=== PATIENT | female | born 1965 | race Two or more races ===

== ENCOUNTER 2016-07-17 18:00 | Emergency (ER) | payer SELFPAY ==
[~2016-07-17] VITALS: Ht 152.4 cm; Wt 61.8 kg
[2016-07-17] MEDS ORDERED: SODIUM CHLORIDE 0.9% 1,000ML IVBOLUS ONE ×2 (19:00→20:00)
[2016-07-17] MEDS ORDERED: ONDANSETRON 2MG/ML, 2ML IVPush ONE (19:00)
[2016-07-17] MEDS ORDERED: METOCLOPRAMIDE 5 MG/ML, 2ML IVPush ONE (19:00)
[2016-07-17] MEDS ORDERED: ONDANSETRON 2MG/ML, 2ML ONE (19:03)
[2016-07-17] MEDS ORDERED: METOCLOPRAMIDE 5 MG/ML, 2ML ONE (19:03)
[2016-07-17 19:16] LABS: PH, VENOUS 7.412 pH (7.320-7.420)
[2016-07-17 19:30] LABS: BLOOD UREA NITROGEN 21 mg/dL (7-18)
[2016-07-17 19:33] LABS: IS PT STATUS REG ER OR PRE ER? YES
[2016-07-17 19:36] LABS: ASPARTATE AMINO TRANSFERASE 19 U/L (15-37)
[2016-07-17] MEDS ORDERED: INSULIN REGULAR 100 UNITS/ML, 3ML VIAL SQ-INSULIN ONE (20:00)
[2016-07-17 20:02] LABS: PATH.CAST-FLAG NOT PRESENT; SPERM-FLAG NOT PRESENT; SRC-FLAG NOT PRESENT; XTAL-FLAG NOT PRESENT; YLC-FLAG NOT PRESENT
[2016-07-17] MEDS ORDERED: INSULIN SINGLE DOSE, ER SQ-INSULIN ONE (20:07)
[2016-07-17] MEDS ORDERED: CIPROFLOXACIN 500 MG TABLET PO ONE (21:30)
[2016-07-17] MEDS ORDERED: CIPROFLOXACIN 500 MG TABLET ONE (21:41)
[2016-07-17 22:06] VITALS: BP 139/75
== END 2016-07-17 22:08 | disposition home or self-care (01) ==
LOC: ED 21:00
DX: E86.0 Dehydration (principal); G43.A1 Cyclical vomiting, in migraine, intractable; E86.9 Volume depletion, unspecified; N30.00 Acute cystitis without hematuria; E11.65 Type 2 diabetes mellitus with hyperglycemia; E78.5 Hyperlipidemia, unspecified; I10 Essential (primary) hypertension
CPT/HCPCS: 36415; 80053; 81001; 82010; 82803; 82962; 83690; 83735; 84484; 84703; 85025; 87086; 93005; 96361; 96372; 96374; 96375; 99285; J2405; J2765; J7030

== ENCOUNTER 2016-07-27 16:48 | Emergency (ER) | payer OTHER ==
[~2016-07-27] VITALS: Ht 154.9 cm; Wt 50.6 kg
[2016-07-27] MEDS ORDERED: ONDANSETRON 2MG/ML, 2ML IVPush ONE (17:30)
[2016-07-27] MEDS ORDERED: SODIUM CHLORIDE 0.9% 1,000ML IVBOLUS ONE ×2 (17:30→22:30)
[2016-07-27] MEDS ORDERED: SODIUM CHLORIDE FLUSH 10ML SYR IVF ONE (18:00)
[2016-07-27] MEDS ORDERED: ONDANSETRON 2MG/ML, 2ML ONE (18:14)
[2016-07-27 18:28] LABS: ASPARTATE AMINO TRANSFERASE 17 U/L (15-37); BLOOD UREA NITROGEN 28 mg/dL (7-18)
[2016-07-27] MEDS ORDERED: FAMOTIDINE 20 MG/2 ML IVPush ONE (18:30)
[2016-07-27] MEDS ORDERED: FAMOTIDINE 20 MG/2 ML ONE (18:41)
[2016-07-27 19:30] LABS: PATH.CAST-FLAG NOT PRESENT; SPERM-FLAG NOT PRESENT; SRC-FLAG NOT PRESENT; XTAL-FLAG NOT PRESENT; YLC-FLAG NOT PRESENT
[2016-07-27] MEDS ORDERED: INSULIN REGULAR 100 UNITS/ML, 3ML VIAL ONE (20:45)
[2016-07-27] MEDS ORDERED: CEFTRIAXONE PMX 1GM/50ML 50 ML IV ONE (21:00)
[2016-07-27] MEDS ORDERED: MORPHINE SULFATE 4 MG/ML, 1ML IVPush PRN (21:00)
[2016-07-27] MEDS ORDERED: CEFTRIAXONE PMX 1GM/50ML 50 ML ONE ×2 (21:24→21:37)
[2016-07-27] MEDS ORDERED: MORPHINE SULFATE 4 MG/ML, 1ML ONE (22:17)
[2016-07-27] MEDS ORDERED: DIPHENHYDRAMINE 50 MG/ML, 1ML IVPush ONE (22:30)
[2016-07-27] MEDS ORDERED: METOCLOPRAMIDE 5 MG/ML, 2ML IVPush ONE (22:30)
[2016-07-27 23:22] VITALS: BP 121/72
[2016-07-28] MEDS ORDERED: INSULIN REGULAR 100 UNITS/ML, 3ML VIAL SQ-INSULIN SCH (07:00)
== END 2016-07-27 23:24 | disposition home or self-care (01) ==
LOC: ED 18:38
DX: N30.00 Acute cystitis without hematuria (principal); E11.65 Type 2 diabetes mellitus with hyperglycemia; I10 Essential (primary) hypertension; E78.5 Hyperlipidemia, unspecified
CPT/HCPCS: 36415; 76700; 80053; 81001; 82010; 82800; 82962; 83690; 85025; 86677; 87086; 96361; 96365; 96372; 96375; 99285; J0696; J2405; J7030; S0028

== ENCOUNTER 2018-03-11 11:37 | Emergency (ER) | payer SELFPAY ==
[~2018-03-11] VITALS: Ht 152.4 cm; Wt 62.1 kg
--- NOTE | 2018-03-11 12:11 | NUR ---
PT BIBG SON WITH 2 DAYS HX OF FEVERS AND COUGH. PT'S SON HAS HAD SIMILAR SYMPTOMS OVER THE LAST 4 DAYS. CHART UP FOR .
[2018-03-11] MEDS ORDERED: CHOLESTEROL MED PO (12:16)
[2018-03-11] MEDS ORDERED: ASPI-691 PO (12:16)
[2018-03-11] MEDS ORDERED: METF500T17 PO (12:16)
[2018-03-11] MEDS ORDERED: ENALAPRIL PO (12:16)
[2018-03-11] MEDS ORDERED: IBUPROFEN 200 MG TABLET ONE (12:18)
[2018-03-11] MEDS ORDERED: IBUPROFEN 200 MG TABLET PO ONE (12:30)
[2018-03-11 12:53] LABS: RAPID INFLUENZA A Negative (Negative); RAPID INFLUENZA B Negative (Negative)
[2018-03-11 13:10] VITALS: BP 108/55
== END 2018-03-11 13:25 | disposition home or self-care (01) ==
LOC: ED 13:19
DX: B34.9 Viral infection, unspecified (principal); M79.10 Myalgia, unspecified site; E11.65 Type 2 diabetes mellitus with hyperglycemia; I10 Essential (primary) hypertension; E78.5 Hyperlipidemia, unspecified
CPT/HCPCS: 71045; 87400; 99284

== ENCOUNTER 2020-01-31 12:16 | Emergency (ER) | payer OTHER ==
[~2020-01-31] VITALS: Ht 154.9 cm; Wt 61.8 kg
[~2020-01-31 12:16] MED LIST: ASPI-691 PO; CHOLESTEROL MED PO; ENALAPRIL PO; METF500T17 PO
--- NOTE | 2020-01-31 13:14 | NUR ---
*BRANDY BYRNE USED FOR TRANSLATION* (BLUE PHONE NOT WORKING AND [employer] CANNOT BE USED IN COVID ROOMS. ) PATIENT WALKED BACK FROM [facility] WITH CHIEF C/O WEAKNESS, TELLO X2 WEEKS. PATIENT REPORTS HAVING A HARD TIME GETTING OUT OF BED BY HERSELF, SHE REPORTS N/V/D, BODY AHCES, AND DIZZINESS. PATIENT STATES WHEN SHE STANDS UP SHE FEELS LIKE SHE IS GOING TO FALL FORWARD. PATIENT REPORTS A MILD COUGH. COVID TESTED LAST MONDAY AT [facility] [place], BUT PATIENT REPORTS SHE HAS NOT RECEIVED THE RESULTS YET. ERMD AT BEDSIDE FOR EVALUATION, NO SIGNS OF ACUTE DISTRESS, CONNECTED TO BALLROOM DANCE INSTRUCTOR.
--- NOTE | 2020-01-31 14:09 | NUR ---
PATIENT RESTING IN GURNEY WITH EYES CLOSED, RESPIRATIONS EVEN AND UNLABORED, CONNECTED TO WELL SHOOTER, SIDE RAILS UP X2, CALL LIGHT WITHIN REACH.
--- NOTE | 2020-01-31 14:12 | NUR ---
PATIENT AMBULATED TO BATHROOM WITH STEADY GAIT TO LEAVE URINE SAMPLE.
[2020-01-31 14:20] LABS: ALBUMIN 3.6 g/dL (3.4-5.0); ANION GAP 4 mmol/L (5-15); CALCIUM 9.6 mg/dL (8.5-10.1); CHLORIDE 103 mmol/L (98-107)
[2020-01-31 14:26] LABS: BASOPHILS % (AUTO) 0 % (0-1); EOSINOPHILS % (AUTO) 1 % (1-7); LYMPHOCYTES % (AUTO) 13 % (22-44); MEAN CORPUSCULAR HEMOGLOBIN 29.1 pg (27.0-34.8); MEAN CORPUSCULAR HGB CONC 33.8 g/dL (32.4-35.8); MEAN PLATELET VOLUME 9.5 fL (7.4-10.4); MONOCYTES % (AUTO) 7 % (2-9); NEUTROPHILS % (AUTO) 79 % (42-75); PLATELET COUNT 290 x10^3/uL (130-400); RED CELL DISTRIBUTION WIDTH 12.4 % (9.6-15.2)
[2020-01-31 14:51] LABS: MD NO
[2020-01-31 15:46] LABS: MICROSCOPIC AUTO
[2020-01-31 16:07] VITALS: BP 119/75
--- NOTE | 2020-01-31 16:11 | NUR ---
Patient given discharge instructions and they have confirmed that they understand the instructions. All patient belongings gathered and taken with patient. Patient ambulatory with steady gait from ED.
== END 2020-01-31 16:12 | disposition home or self-care (01) ==
LOC: ED 15:55
DX: B43.9 Chromomycosis, unspecified (principal); R53.1 Weakness; R05 Cough; J02.9 Acute pharyngitis, unspecified; M79.10 Myalgia, unspecified site; R42 Dizziness and giddiness; R51.9 Headache, unspecified; I10 Essential (primary) hypertension; E11.9 Type 2 diabetes mellitus without complications; E78.5 Hyperlipidemia, unspecified
CPT/HCPCS: 36415; 71045; 80048; 81001; 82040; 85025; 87086; 93005; 99285